=== PATIENT | female | born 1965 | race Caucasian/White ===

== ENCOUNTER 2017-04-05 19:14 | Observation (INO) | payer MEDICAID, OTHER ==
[2017-04-05] MEDS: ONDANSETRON 4 MG INJ IV ×2 (20:12→20:37)
[2017-04-05] MEDS: morphine 4 MG/ML VIAL IV (20:12)
[2017-04-05] MEDS: ASPIRIN 325 MG TAB PO (20:13)
[2017-04-05] MEDS: NITROGLYCERIN 2% 1 GM OINT PKT TD (20:14)
[2017-04-05 20:24] LABS: ADD MAN DIFF? NO
[2017-04-05 20:28] LABS: BASOPHILS % 0.2 % (0.0-2.0); EOSINOPHILS # 0.2 10^3/ul (0.0-0.5); EOSINOPHILS % 2.7 % (0.0-7.0); HEMATOCRIT 42.9 % (37.0-47.0); HEMOGLOBIN 15.1 g/dl (12.0-16.0); LYMPHOCYTES # 2.3 10^3/ul (0.8-2.9); LYMPHOCYTES % 26.3 % (15.0-51.0); MEAN CORPUSCULAR HEMOGLOBIN 28.9 pg (29.0-33.0); MEAN CORPUSCULAR HGB CONC 35.2 g/dl (32.0-37.0); MEAN CORPUSCULAR VOLUME 82.2 fl (82.0-101.0); MEAN PLATELET VOLUME 10.4 fl (7.4-10.4); MONOCYTE # 0.5 10^3/ul (0.3-0.9); MONOCYTES % 5.4 % (0.0-11.0); NEUTROPHIL # 5.7 10^3/ul (1.6-7.5); NEUTROPHILS % 65.3 % (39.0-77.0); PLATELET COUNT 175 10^3/UL (140-415); RED BLOOD COUNT 5.22 10^6/ul (4.20-5.40); RED CELL DISTRIBUTION WIDTH 12.1 % (11.5-14.5)
[2017-04-05 20:28] LABS: WHITE BLOOD COUNT 8.7 10^3/ul (4.8-10.8)
[2017-04-05] MEDS: HYDROmorphONE 1 MG/ML SYG IV (20:37)
[2017-04-05 20:46] LABS: ALANINE AMINOTRANSFERASE 71 IU/L (13-69); ALBUMIN/GLOBULIN RATIO 1.21; ALKALINE PHOSPHATASE 169 IU/L (42-121); ANION GAP 20 (8-16); ASPARTATE AMINO TRANSFERASE 52 IU/L (15-46); BLOOD UREA NITROGEN 14 mg/dl (7-20); CALCIUM 9.9 mg/dl (8.4-10.2); CARBON DIOXIDE 25 mmol/L (21-31); CHLORIDE 102 mmol/L (97-110); CREATININE 0.54 mg/dl (0.44-1.00); GLUCOSE 167 mg/dl (70-220); POTASSIUM 3.9 mmol/L (3.5-5.1); PROTIME 12.2 Sec (11.9-14.9); SODIUM 143 mmol/L (135-144); TOTAL PROTEIN 9.1 g/dl (6.1-8.1)
[2017-04-05 20:47] LABS: PARTIAL THROMBOPLASTIN TIME 32.3 Sec (25.0-35.0)
[2017-04-05 20:58] LABS: B-TYPE NATRIURETIC PEPTIDE 17 PG/ML (0-125)
[2017-04-05 21:07] LABS: TROPONIN-I < 0.012 ng/ml (0.00-0.12)
[2017-04-05] MEDS: LORAZEPAM 2 MG INJ IV (23:24)
[2017-04-06] MEDS: ACCU-CHEK XX (02:00)
[2017-04-06] MEDS ORDERED: ALBUTEROL/IPRATROPIUM (NEB) 3 ML AMP HHN (02:00)
[2017-04-06] MEDS ORDERED: NACL 0.9% 3 ML SYG IV (02:00)
[2017-04-06] MEDS ORDERED: ONDANSETRON 4 MG INJ IV (02:00)
[2017-04-06] MEDS ORDERED: morphine 2 MG INJ IV (02:00)
[2017-04-06] MEDS ORDERED: NITROGLYCERIN (SL) 0.4 MG TAB SL (02:00)
[2017-04-06] MEDS ORDERED: DEXTROSE 50% 50 ML SYRINGE IV ×2 (02:30)
[2017-04-06] MEDS ORDERED: GLUCOSE GEL 15 GRAM TUBE PO ×2 (02:30)
[2017-04-06] MEDS ORDERED: GLUCAGON 1 MG INJ IM (02:30)
[2017-04-06] MEDS ORDERED: GLUCOSE GEL 15 GRAM TUBE BUCCAL (02:30)
[2017-04-06] MEDS: ENOXAPARIN 40 MG/0.4 ML SYG SC (08:25)
[2017-04-06] MEDS: ASPIRIN 81 MG TAB PO (08:26)
[2017-04-06] MEDS: metFORMIN 850 MG TAB PO (08:26)
[2017-04-06] MEDS: INSULIN ASPART [NOVOLOG] 3 ML PEN SC ×4 (08:26→20:30)
[2017-04-06 08:30] LABS: ADD MAN DIFF? NO
[2017-04-06 08:34] LABS: BASOPHILS % 0.3 % (0.0-2.0); EOSINOPHILS # 0.3 10^3/ul (0.0-0.5); EOSINOPHILS % 4.3 % (0.0-7.0); HEMATOCRIT 38.3 % (37.0-47.0); HEMOGLOBIN 13.4 g/dl (12.0-16.0); LYMPHOCYTES # 1.8 10^3/ul (0.8-2.9); LYMPHOCYTES % 28.1 % (15.0-51.0); MEAN CORPUSCULAR HEMOGLOBIN 29.3 pg (29.0-33.0); MEAN CORPUSCULAR VOLUME 83.8 fl (82.0-101.0); MEAN PLATELET VOLUME 9.8 fl (7.4-10.4); MONOCYTE # 0.3 10^3/ul (0.3-0.9); MONOCYTES % 4.3 % (0.0-11.0); NEUTROPHIL # 3.9 10^3/ul (1.6-7.5); NEUTROPHILS % 62.7 % (39.0-77.0); PLATELET COUNT 176 10^3/UL (140-415); RED BLOOD COUNT 4.57 10^6/ul (4.20-5.40); RED CELL DISTRIBUTION WIDTH 12.4 % (11.5-14.5)
[2017-04-06 08:34] LABS: WHITE BLOOD COUNT 6.2 10^3/ul (4.8-10.8)
[2017-04-06 08:54] LABS: ALANINE AMINOTRANSFERASE 70 IU/L (13-69); ALBUMIN 4.4 g/dl (3.3-4.9); ALBUMIN/GLOBULIN RATIO 1.25; ALKALINE PHOSPHATASE 136 IU/L (42-121); ASPARTATE AMINO TRANSFERASE 47 IU/L (15-46); BILIRUBIN,INDIRECT 0.2 mg/dl (0-1.1); BILIRUBIN,TOTAL 0.2 mg/dl (0.2-1.3); BLOOD UREA NITROGEN 18 mg/dl (7-20); CALCIUM 9.8 mg/dl (8.4-10.2); CARBON DIOXIDE 26 mmol/L (21-31); CHLORIDE 104 mmol/L (97-110); CHOL/HDL RATIO 8.5 RATIO; CHOLESTEROL 255 mg/dl (100-200); GLUCOSE 154 mg/dl (70-220); HDL CHOLESTEROL 30 mg/dl (37-92); SODIUM 145 mmol/L (135-144); TOTAL PROTEIN 7.9 g/dl (6.1-8.1)
[2017-04-06 09:02] LABS: ANION GAP 19 (8-16); POTASSIUM 4.1 mmol/L (3.5-5.1)
[2017-04-06 09:05] LABS: LDL CHOLESTEROL,CALCULATED 116 mg/dl; TRIGLYCERIDES 544 mg/dl (0-149)
[2017-04-06] MEDS: glipiZIDE 10 MG TAB PO (10:30)
[2017-04-06 10:31] LABS: CREATINE KINASE 137 IU/L (23-200)
[2017-04-06 10:45] LABS: CK INDEX 0.7; CK-MB 0.92 ng/ml (0.0-2.4); TROPONIN-I < 0.012 ng/ml (0.00-0.12)
[2017-04-06] MEDS: LISINOPRIL 10 MG TAB PO (12:08)
[2017-04-06] MEDS: ACETAMINOPHEN 325 MG TAB PO ×2 (12:09→20:39)
[2017-04-06 14:50] LABS: CREATINE KINASE 113 IU/L (23-200)
[2017-04-06 15:03] LABS: CK INDEX 0.6; CK-MB 0.66 ng/ml (0.0-2.4)
[2017-04-06 15:07] LABS: TROPONIN-I < 0.012 ng/ml (0.00-0.12)
[2017-04-06 15:21] LABS: HEPATITIS B SURFACE ANTIGEN NEGATIVE (NEGATIVE)
[2017-04-06 15:38] LABS: HEPATITIS B CORE ANTIBODY NEGATIVE (NEGATIVE); HEPATITIS C VIRAL ANTIBODY NEGATIVE (NEGATIVE)
[2017-04-06 15:39] LABS: HEPATITIS B SURFACE ANTIBODY NEGATIVE (NEGATIVE)
[2017-04-06] MEDS: ATORVASTATIN 40 MG TAB PO (20:31)
[2017-04-07] MEDS: ACCU-CHEK XX (00:38)
[2017-04-07] MEDS: INSULIN ASPART [NOVOLOG] 3 ML PEN SC ×2 (08:00→11:48)
[2017-04-07] MEDS: metFORMIN 850 MG TAB PO (08:44)
[2017-04-07] MEDS: glipiZIDE 10 MG TAB PO (08:44)
[2017-04-07] MEDS: LISINOPRIL 10 MG TAB PO (08:45)
[2017-04-07] MEDS: ASPIRIN 81 MG TAB PO (08:45)
[2017-04-07] MEDS: ENOXAPARIN 40 MG/0.4 ML SYG SC (08:46)
[2017-04-07 09:03] LABS: WHITE BLOOD COUNT 5.3 10^3/ul (4.8-10.8)
[2017-04-07 09:03] LABS: ADD MAN DIFF? NO; BASOPHILS % 0.4 % (0.0-2.0); EOSINOPHILS # 0.3 10^3/ul (0.0-0.5); EOSINOPHILS % 5.7 % (0.0-7.0); HEMATOCRIT 40.5 % (37.0-47.0); HEMOGLOBIN 14.2 g/dl (12.0-16.0); LYMPHOCYTES # 1.7 10^3/ul (0.8-2.9); LYMPHOCYTES % 31.9 % (15.0-51.0); MEAN CORPUSCULAR HEMOGLOBIN 29.2 pg (29.0-33.0); MEAN CORPUSCULAR HGB CONC 35.1 g/dl (32.0-37.0); MEAN CORPUSCULAR VOLUME 83.3 fl (82.0-101.0); MEAN PLATELET VOLUME 9.8 fl (7.4-10.4); MONOCYTE # 0.3 10^3/ul (0.3-0.9); MONOCYTES % 4.9 % (0.0-11.0); NEUTROPHILS % 57.1 % (39.0-77.0); PLATELET COUNT 192 10^3/UL (140-415); RED BLOOD COUNT 4.86 10^6/ul (4.20-5.40); RED CELL DISTRIBUTION WIDTH 12.4 % (11.5-14.5)
[2017-04-07 09:23] LABS: ANION GAP 16 (8-16); BLOOD UREA NITROGEN 17 mg/dl (7-20); CALCIUM 9.8 mg/dl (8.4-10.2); CARBON DIOXIDE 26 mmol/L (21-31); CHLORIDE 104 mmol/L (97-110); CREATININE 0.63 mg/dl (0.44-1.00); GLUCOSE 132 mg/dl (70-220); PHOSPHORUS 4.6 mg/dl (2.5-4.9); POTASSIUM 4.1 mmol/L (3.5-5.1); SODIUM 142 mmol/L (135-144)
== END 2017-04-07 14:35 | disposition home or self-care (01) ==
LOC: E/R 19:14 → MS4 23:53
DX: R07.9 Chest pain, unspecified (principal); I10 Essential (primary) hypertension; E11.9 Type 2 diabetes mellitus without complications; Z79.84 Long term (current) use of oral hypoglycemic drugs; R51 Headache; E78.5 Hyperlipidemia, unspecified; K76.0 Fatty (change of) liver, not elsewhere classified
CPT/HCPCS: 36415; 70450; 71045; 76705; 80048; 80053; 80061; 82550; 82553; 82962; 83036; 83735; 83880; 84100; 84443; 84484; 85025; 85610; 85730; 86704; 86706; 86803; 87340; 93005; 93306; 96374; 96375; 99285-25; G0378

== ENCOUNTER 2017-09-22 15:27 | Observation (INO) | payer MEDICAID, OTHER ==
[2017-09-22 18:17] LABS: ADD MAN DIFF? NO
[2017-09-22 18:19] LABS: BASOPHILS % 0.4 % (0.0-2.0); EOSINOPHILS # 0.3 10^3/ul (0.0-0.5); EOSINOPHILS % 3.4 % (0.0-7.0); HEMATOCRIT 43.8 % (37.0-47.0); HEMOGLOBIN 15.4 g/dl (12.0-16.0); LYMPHOCYTES # 2.4 10^3/ul (0.8-2.9); LYMPHOCYTES % 32.7 % (15.0-51.0); MEAN CORPUSCULAR HEMOGLOBIN 29.1 pg (29.0-33.0); MEAN CORPUSCULAR HGB CONC 35.2 g/dl (32.0-37.0); MEAN CORPUSCULAR VOLUME 82.8 fl (82.0-101.0); MEAN PLATELET VOLUME 9.2 fl (7.4-10.4); MONOCYTE # 0.4 10^3/ul (0.3-0.9); MONOCYTES % 5.2 % (0.0-11.0); NEUTROPHIL # 4.3 10^3/ul (1.6-7.5); NEUTROPHILS % 57.9 % (39.0-77.0); PLATELET COUNT 218 10^3/UL (140-415); RED BLOOD COUNT 5.29 10^6/ul (4.20-5.40); RED CELL DISTRIBUTION WIDTH 12.5 % (11.5-14.5)
[2017-09-22 18:19] LABS: WHITE BLOOD COUNT 7.4 10^3/ul (4.8-10.8)
[2017-09-22] MEDS ORDERED: NITROGLYCERIN (SL) 0.4 MG TAB SL (18:30)
[2017-09-22 18:38] LABS: ANION GAP 18 (8-16); BLOOD UREA NITROGEN 14 mg/dl (7-20); CALCIUM 10.6 mg/dl (8.4-10.2); CARBON DIOXIDE 25 mmol/L (21-31); CHLORIDE 103 mmol/L (97-110); CREATININE 0.52 mg/dl (0.44-1.00); GLUCOSE 130 mg/dl (70-220); POTASSIUM 4.1 mmol/L (3.5-5.1); SODIUM 142 mmol/L (135-144)
[2017-09-22 18:39] LABS: ACETAMINOPHEN < 10.0 ug/ml (10.0-30.0); ETHANOL < 10.0 mg/dl; SALICYLATE < 1.0 mg/dl (5.0-30.0)
[2017-09-22] MEDS: SOD CHLORIDE 0.9% 100 ML (18:46)
[2017-09-22] MEDS: IOHEXOL 100 ML (18:46)
[2017-09-22 18:51] LABS: TROPONIN-I < 0.010 ng/ml (0.000-0.120)
[2017-09-22] MEDS: SOD CHLORIDE 0.9% 1,000 ML IV (20:03)
[2017-09-22] MEDS: ONDANSETRON 4 MG INJ IV (20:04)
[2017-09-22] MEDS: ASPIRIN 81 MG TAB PO (20:04)
[2017-09-22] MEDS: morphine 4 MG/ML VIAL IV (20:04)
[2017-09-22] MEDS: OLANZAPINE (ODT) 5 MG TAB ODT (20:06)
[2017-09-22] MEDS: NITROGLYCERIN 2% 1 GM OINT PKT TD (20:06)
[2017-09-22] MEDS ORDERED: ONDANSETRON 4 MG INJ IV (20:30)
[2017-09-22] MEDS ORDERED: ACETAMINOPHEN 325 MG TAB PO (20:30)
[2017-09-23 00:40] LABS: CREATINE KINASE 240 IU/L (23-200)
[2017-09-23 00:53] LABS: CK INDEX 0.6; CK-MB 1.38 ng/ml (0.0-2.4); TROPONIN-I < 0.010 ng/ml (0.000-0.120)
[2017-09-23] MEDS ORDERED: GLUCOSE GEL 15 GRAM TUBE BUCCAL (03:06)
[2017-09-23] MEDS ORDERED: DEXTROSE 50% 50 ML SYRINGE IV ×2 (03:06)
[2017-09-23] MEDS ORDERED: GLUCOSE GEL 15 GRAM TUBE PO ×2 (03:06)
[2017-09-23] MEDS ORDERED: GLUCAGON 1 MG INJ IM (03:06)
[2017-09-23] MEDS: QUETIAPINE 25 MG TAB PO (04:26)
[2017-09-23 06:30] LABS: ADD MAN DIFF? NO
[2017-09-23 06:47] LABS: BASOPHILS % 0.3 % (0.0-2.0); EOSINOPHILS # 0.2 10^3/ul (0.0-0.5); EOSINOPHILS % 2.5 % (0.0-7.0); HEMATOCRIT 40.3 % (37.0-47.0); HEMOGLOBIN 13.6 g/dl (12.0-16.0); LYMPHOCYTES # 1.8 10^3/ul (0.8-2.9); LYMPHOCYTES % 30.1 % (15.0-51.0); MEAN CORPUSCULAR HEMOGLOBIN 28.4 pg (29.0-33.0); MEAN CORPUSCULAR HGB CONC 33.7 g/dl (32.0-37.0); MEAN CORPUSCULAR VOLUME 84.1 fl (82.0-101.0); MEAN PLATELET VOLUME 9.1 fl (7.4-10.4); MONOCYTE # 0.4 10^3/ul (0.3-0.9); MONOCYTES % 5.8 % (0.0-11.0); NEUTROPHIL # 3.7 10^3/ul (1.6-7.5); NEUTROPHILS % 61.1 % (39.0-77.0); PLATELET COUNT 195 10^3/UL (140-415); RED BLOOD COUNT 4.79 10^6/ul (4.20-5.40); RED CELL DISTRIBUTION WIDTH 12.8 % (11.5-14.5)
[2017-09-23 07:10] LABS: CREATINE KINASE 201 IU/L (23-200)
[2017-09-23 07:12] LABS: CK INDEX 0.6; CK-MB 1.13 ng/ml (0.0-2.4); TROPONIN-I < 0.010 ng/ml (0.000-0.120)
[2017-09-23 07:20] LABS: ALANINE AMINOTRANSFERASE 91 IU/L (13-69); ALBUMIN/GLOBULIN RATIO 1.14; ALKALINE PHOSPHATASE 109 IU/L (42-121); ANION GAP 14 (8-16); ASPARTATE AMINO TRANSFERASE 72 IU/L (15-46); BILIRUBIN,INDIRECT 0.3 mg/dl (0-1.1); BILIRUBIN,TOTAL 0.3 mg/dl (0.2-1.3); BLOOD UREA NITROGEN 17 mg/dl (7-20); CALCIUM 9.8 mg/dl (8.4-10.2); CARBON DIOXIDE 27 mmol/L (21-31); CHLORIDE 105 mmol/L (97-110); CHOL/HDL RATIO 8.3 RATIO; CHOLESTEROL 277 mg/dl (100-200); CREATININE 0.66 mg/dl (0.44-1.00); GLUCOSE 130 mg/dl (70-220); HDL CHOLESTEROL 33 mg/dl (37-92); LDL CHOLESTEROL,CALCULATED 191 mg/dl; POTASSIUM 4.5 mmol/L (3.5-5.1); SODIUM 141 mmol/L (135-144); TOTAL PROTEIN 7.5 g/dl (6.1-8.1); TRIGLYCERIDES 266 mg/dl (0-149)
[2017-09-23 07:27] LABS: HEMOGLOBIN A1C 6.7 % (0-5.9)
[2017-09-23 07:33] LABS: TROPONIN-I < 0.010 ng/ml (0.000-0.120)
[2017-09-23] MEDS: INSULIN ASPART [NOVOLOG] 3 ML PEN SC ×2 (07:55→11:50)
[2017-09-23] MEDS: metFORMIN 850 MG TAB PO (08:58)
[2017-09-23] MEDS: CITALOPRAM 20 MG TAB PO (08:59)
[2017-09-23] MEDS: LISINOPRIL 20 MG TAB PO (08:59)
[2017-09-23 13:18] LABS: TROPONIN-I < 0.010 ng/ml (0.000-0.120)
[2017-09-23] MEDS ORDERED: ATORVASTATIN 80 MG TAB PO (21:00)
[2017-09-23] MEDS ORDERED: ATORVASTATIN 40 MG TAB PO (21:00)
[2017-09-24] MEDS ORDERED: ACCU-CHEK XX (02:00)
== END 2017-09-23 18:40 | disposition home or self-care (01) ==
LOC: TEL 20:28 → E/R 15:27
DX: R07.9 Chest pain, unspecified (principal); I16.0 Hypertensive urgency; I10 Essential (primary) hypertension; E11.9 Type 2 diabetes mellitus without complications; E78.00 Pure hypercholesterolemia, unspecified; E78.5 Hyperlipidemia, unspecified; Z79.84 Long term (current) use of oral hypoglycemic drugs; Z79.82 Long term (current) use of aspirin; Z82.49 Family history of ischemic heart disease and other diseases of the circulatory system
CPT/HCPCS: 36415; 71045; 71275; 80048; 80053; 80061; 80307; 82550; 82553; 82962; 83036; 84443; 84484; 85025; 93005; 96374; 96375; 99285-25; G0378